=== PATIENT | female | born 1985 | race Native Hawaiian/Other Pacific Islander ===

== ENCOUNTER 2019-05-19 13:19 | Outpatient (CLI) | payer OTHER ==
--- NOTE | 2019-05-19 14:52 | MRI Report ---
Reason: FASCICULATION, VARGAS'S PALSY, UNSPECIFIED SPEECH DI Procedure Date: 05/19/2019 Accession Number: [id number] / [id number] Procedure: MRI - Brain W/O CPT Code: FULL RESULT: EXAM: MRI BRAIN AND INTERNAL AUDITORY CANAL (IAC),WITHOUT CONTRAST. EXAM DATE: 05/19/2019 02:34 PM. CLINICAL HISTORY: FASCICULATION, BELLS PALSY, UNSPECIFIED SPEECH DISTURBANCE. Subjective facial weakness for the past 3 months, difficulty initiating speech, stuttering, increased muscle twitching and irritability.. COMPARISON: None. TECHNIQUE: Multiplanar, multisequence T1-weighted and fluid-sensitive MRI sequences of the brain and IACs were performed. Other: None. IV Contrast: None. Without contrast. FINDINGS: Diffusion weighted sequence shows no evidence for acute infarct. There is no mass, mass effect, midline shift or abnormal extraaxial fluid collection. Size and configuration of the ventricles are normal. Signal in the cortex and white matter appears normal. Brainstem and cerebellum appear normal. Major intracranial flow voids appear normal. T2 signal in the internal auditory canal, and membranous labyrinth appears normal. No evidence for superior semicircular canal dehiscence Globes, orbits, optic nerve sheath complex, optic chiasm, pituitary, cavernous sinus and Meckel's cave appear normal. Paranasal sinuses and mastoid air cells appear well aerated. Marrow signal and extracranial soft tissue appear normal. Craniocervical junction and visualized upper cervical cord appear unremarkable. IMPRESSION: 1. Normal MRI of the brain and IAC without contrast. 2. For the diagnosis of acute facial neuritis (Vargas's palsy), contrast-enhanced MRI is required to evaluate for abnormal enhancement of the facial nerve. RADIA
== END 2019-05-19 13:20 | disposition home or self-care (01) ==
LOC: DI 13:19
PROVIDERS: ATTEND Family Medicine
DX: G51.0 Bell's palsy (principal); R25.3 Fasciculation; R47.9 Unspecified speech disturbances
CPT/HCPCS: 70551

== ENCOUNTER 2021-06-15 04:13 | Emergency (ER) | payer OTHER ==
[2021-06-15] MEDS ORDERED: hydrOXYzine PAMOATE 25 MG CAPSULE PO STA (04:42)
--- NOTE | 2021-06-15 04:42 | ED Physician Documentation ---
PD HPI CHEST PAIN - Stated complaint Stated Complaint: CHEST PRESSURE, PANICK ATTACK - Chief complaint Chief Complaint: Cardiac - History obtained from History obtained from: Patient - History of Present Illness Timing - onset during: Other (unable to sleep all night, then sudden onset severe anxiety and chest pain just prior to arrival) Timing - details: Abrupt onset Quality: Tightness Location: Substernal Associated symptoms: Shortness of air, Other (severe anxiety/hyperventilating) Similar symptoms before: No diagnosis Review of Systems Ten Systems: 10 systems reviewed and negative Constitutional: denies: Fever, Chills Cardiac: reports: Chest pain / pressure, Palpitations Respiratory: reports: Dyspnea. denies: Cough Psychiatric: reports: Anxiety, Insomnia PD PAST MEDICAL HISTORY - Present Medications Home Medications: Ambulatory Orders Medication Instructions Recorded Confirmed hydrOXYzine HCL [Hydroxyzine HCl] 50 mg PO TID PRN #30 tablet 06/15/21 - Allergies Allergies/Adverse Reactions: Allergies Allergy/AdvReac Type Severity Reaction Status Date / Time No Known Drug Allergies Allergy Verified 06/15/21 04:26 PD ED PE NORMAL - Vitals Vital signs reviewed: Yes - General General: Alert and oriented X 3, No acute distress, Well developed/nourished - HEENT HEENT: Atraumatic, PERRL, EOMI - Neck Neck: Supple, no meningeal sign - Cardiac Cardiac: RRR - Respiratory Respiratory: No respiratory distress, Clear bilaterally - Abdomen Abdomen: Non tender, Non distended - Derm Derm: Normal color - Extremities Extremities: No deformity - Neuro Neuro: Alert and oriented X 3 - Psych Psych: Normal mood, Normal affect Results - Vitals Vitals: Vital Signs - 24 hr 06/15/21 06/15/21 04:15 04:22 Temperature 36.4 C L Heart Rate 65 66 Respiratory 18 15 Rate Blood Pressure 167/94 H 141/87 H O2 Saturation 99 100 Oxygen O2 Source Room air - EKG (time done) 0420 Rate: Rate (enter#) (85) Rhythm: NSR Rock: Normal Intervals: Normal ID, QRS normal Ischemia: Other (no STEMI) PD MEDICAL DECISION MAKING - ED course ED course: 36 y F presents s/p self reported "panic attack". ekg noncontributory. patient feeling better now and requesting atarax to go home with, which has helped in the past. return precautions given. plan to f/u with pmd for outpatient mental health resources. coping mechanisms and mental health care education provided. Departure - Departure Disposition: 01 Home, Self Care Clinical Impression: Anxiety attack Condition: Good Instructions: ED Stress React Prescriptions: hydrOXYzine HCL [Hydroxyzine HCl] 50 mg PO TID PRN #30 tablet PRN Reason: anxiety Comments: You were seen in the emergency department for acute anxiety. Your EKG did not show a heart attack. Please follow up with your primary doctor this week and return to the emergency department if you have any new or worsening symptoms or other concerns.
[2021-06-15 05:04] VITALS: BP 131/85
== END 2021-06-15 05:20 | disposition home or self-care (01) ==
LOC: ED 04:13
DX: F41.0 Panic disorder [episodic paroxysmal anxiety] (principal); R07.89 Other chest pain
CPT/HCPCS: 93005; 99284; A9270

== ENCOUNTER 2022-05-30 13:51 | Emergency (ER) | payer OTHER ==
[2022-05-30 14:20] LABS: BASOPHILS # (AUTO) 0.1 10^3/uL (0.0-0.1); BASOPHILS % (AUTO) 0.4 %; EOSINOPHILS # (AUTO) 0.4 10^3/uL (0.0-0.7); EOSINOPHILS % (AUTO) 2.3 %; HCT - HEMATOCRIT 38.2 % (37.0-47.0); HGB - HEMOGLOBIN 13.6 g/dL (12.0-16.0); LYMPHOCYTES % (AUTO) 19.6 %; MEAN CORPUSCULAR HEMOGLOBIN 30.7 pg (27.0-31.0); MEAN CORPUSCULAR HGB CONC 35.6 g/dL (32.0-36.0); MEAN CORPUSCULAR VOLUME 86.2 fL (81.0-99.0); MEAN PLATELET VOLUME 9.5 fL (7.9-10.8); MONOCYTES # (AUTO) 0.6 10^3/uL (0.0-1.0); NEUTROPHILS # (AUTO) 11.1 10^3/uL (1.5-6.6); NEUTROPHILS % (AUTO) 73.4 %; PLT - PLATELET COUNT 346 10^3/uL (130-450); RED BLOOD COUNT 4.43 10^6/uL (4.20-5.40); RED CELL DISTRIBUTION WIDTH 12.2 % (12.0-15.0); WHITE BLOOD COUNT 15.1 x10^3/uL (4.8-10.8)
[2022-05-30 14:35] LABS: BILIRUBIN,TOTAL 0.6 mg/dL (0.2-1.0); CREATININE 0.7 mg/dL (0.4-1.0); POTASSIUM 3.4 mmol/L (3.5-5.0)
[2022-05-30 14:45] LABS: BILIRUBIN,URINE NEGATIVE (NEGATIVE); GLUCOSE, URINE (UA) 250 mg/dL (NEGATIVE); KETONES,URINE (UA) TRACE mg/dL (NEGATIVE); LEUKOCYTE ESTERASE, URINE TRACE (NEGATIVE); NITRITE,URINE NEGATIVE (NEGATIVE); OCCULT BLOOD,URINE LARGE (NEGATIVE); PROTEIN,URINE 100 mg/dL (NEGATIVE); UROBILINOGEN,URINE 0.2 (NORMAL) E.U./dL (NORMAL)
[2022-05-30 14:51] LABS: CLARITY,URINE CLOUDY (CLEAR)
[2022-05-30 15:05] LABS: AMORPHOUS SEDIMENT,UR Few /LPF; BACTERIA,URINE Few /HPF (None Seen); RBC,URINE TNTC /HPF (0-5); SQUAMOUS EPITHELIAL CELL,UR FEW Squamous (<= Few); WBC,URINE 0-3 /HPF (0-5)
[2022-05-30] MEDS ORDERED: cephALEXin 250 MG CAPSULE PO STA (15:23)
--- NOTE | 2022-05-30 15:23 | ED Physician Documentation ---
History of Present Illness - Stated complaint Stated Complaint: FEMALE - Chief complaint Chief Complaint: Abd Pain - History obtained from History obtained from: Patient - History of Present Illness Timing: Today Pain level max: 4 Pain level now: 1 - Additonal information Additional information: Patient is a 37-year-old female who presents to the emergency department with dysuria, urinary frequency and hematuria. Concern for potential bladder infection. She does not have any pelvic pain contrary to triage note. Patient states she did have implantation of her frozen embryo into her uterus about 1 week ago. No vaginal bleeding or discharge. No abdominal pain. No back pain. No fevers. No chills. No vomiting. Feels similar to prior UTIs. Review of Systems Constitutional: denies: Fever, Chills GI: denies: Vomiting Skin: denies: Rash Musculoskeletal: denies: Neck pain, Back pain PD PAST MEDICAL HISTORY - Past Medical History Past Medical History: Yes Cardiovascular: Hypertension - Past Surgical History Past Surgical History: Yes /RESPITE CARE PROVIDER: section, Hysterectomy, Other - Present Medications Home Medications: Ambulatory Orders Medication Instructions Recorded Confirmed hydrOXYzine HCL [Hydroxyzine HCl] 50 mg PO TID PRN #30 tablet 06/15/21 cephALEXin [Keflex] 500 mg PO Q6H #20 cap 05/30/22 - Allergies Allergies/Adverse Reactions: Allergies Allergy/AdvReac Type Severity Reaction Status Date / Time No Known Drug Allergies Allergy Verified 05/30/22 14:00 - Social History Does the pt smoke?: No Smoking Status: Never smoker Does the pt drink ETOH?: No Does the pt have substance abuse?: No - Immunizations Immunizations are current?: Yes PD ED PE NORMAL - Vitals Vital signs reviewed: Yes - General General: Alert and oriented X 3, No acute distress - HEENT HEENT: Moist mucous membranes - Neck Neck: Supple, no meningeal sign - Cardiac Cardiac: RRR - Respiratory Respiratory: No respiratory distress, Clear bilaterally - Abdomen Abdomen: Soft, Non tender, Non distended - Back Back: No CVA TTP - Derm Derm: Warm and dry - Neuro Neuro: Alert and oriented X 3 Results - Vitals Vitals: Vital Signs - 24 hr 05/30/22 05/30/22 05/30/22 13:55 13:59 15:30 Temperature 36.0 C L 36.5 C 36.5 C Heart Rate 88 88 86 Respiratory 16 16 16 Rate Blood Pressure 142/89 H 142/89 H 130/80 O2 Saturation 99 99 98 Oxygen O2 Source Room air - Labs Labs: Laboratory Tests 05/30/22 05/30/22 05/30/22 14:15 14:15 14:15 WBC 15.1 H RBC 4.43 Hgb 13.6 Hct 38.2 MCV 86.2 MCH 30.7 MCHC 35.6 RDW 12.2 Plt Count 346 MPV 9.5 Neut # (Auto) 11.1 H Lymph # (Auto) 3.0 [place] # (Auto) 0.6 Eos # (Auto) 0.4 Baso # (Auto) 0.1 Absolute Nucleated RBC 0.00 Nucleated RBC % 0.0 Sodium 136 Potassium 3.4 L Chloride 103 Carbon Dioxide 23 Anion Gap 10.0 BUN 8 Creatinine 0.7 Estimated GFR (MDRD) 93 Glucose 131 H Calcium 9.0 Total Bilirubin 0.6 AST 24 ALT 24 Alkaline Phosphatase 47 Total Protein 8.0 Albumin 4.0 Globulin 4.0 Albumin/Globulin Ratio 1.0 Lipase 64 H HCG, Quant < 0.60 Urine Color Urine Clarity Urine pH Ur Specific [place] Urine Protein Urine Glucose (UA) Urine Ketones Urine Occult Blood Urine Nitrite Urine Bilirubin Urine Urobilinogen Ur Leukocyte Esterase Urine RBC Urine WBC Ur Squamous Epith Cells Amorphous Sediment Urine Bacteria Ur Microscopic Review Urine Culture Comments 05/30/22 14:30 WBC RBC Hgb Hct MCV MCH MCHC RDW Plt Count MPV Neut # (Auto) Lymph # (Auto) [place] # (Auto) Eos # (Auto) Baso # (Auto) Absolute Nucleated RBC Nucleated RBC % Sodium Potassium Chloride Carbon Dioxide Anion Gap BUN Creatinine Estimated GFR (MDRD) Glucose Calcium Total Bilirubin AST ALT Alkaline Phosphatase Total Protein Albumin Globulin Albumin/Globulin Ratio Lipase HCG, Quant Urine Color YELLOW Urine Clarity CLOUDY Urine pH 6.0 Ur Specific [place] >=1.030 H Urine Protein 100 H Urine Glucose (UA) 250 H Urine Ketones TRACE Urine Occult Blood LARGE H Urine Nitrite NEGATIVE Urine Bilirubin NEGATIVE Urine Urobilinogen 0.2 (NORMAL) Ur Leukocyte Esterase TRACE H Urine RBC TNTC H Urine WBC 0-3 Ur Squamous Epith Cells FEW Squamous Amorphous Sediment Few Urine Bacteria Few Ur Microscopic Review INDICATED Urine Culture Comments INDICATED PD MEDICAL DECISION MAKING - ED course Complexity details: reviewed results, considered differential, d/w patient ED course: Patient with a UTI. Will place on antibiotics. Patient is well-appearing, nontoxic. Afebrile. No evidence of pyelonephritis, sepsis. Her hCG is less than 0.6. I will have her follow-up with her IVF specialist regarding the implanted frozen embryo. Abdomen is soft, nontender nondistended. No pelvic pain. Patient counseled regarding signs and symptoms for which I believe and urgent re-evaluation would be necessary. Patient with good understanding of and agreement to plan and is comfortable going home at this time This document was made in part using voice recognition software. While efforts are made to proofread this document, sound alike and grammatical errors may occur. Departure - Departure Disposition: Home, Self Care Clinical Impression: UTI (urinary tract infection) Qualifiers: Urinary tract infection type: acute cystitis Hematuria presence: without hematuria Qualified Code(s): N30.00 - Acute cystitis without hematuria Condition: Good Instructions: ED UTI Cystitis Female Follow-Up: your,doctor in 1 week [Other] Prescriptions: cephALEXin [Keflex] 500 mg PO Q6H #20 cap Comments: Please follow-up with your doctor for further care. Please return if you worsen. Your prescriptions were sent to [facility] in [place]. Take all antibiotics until gone. Your hCG level is still negative today. Please follow- up with your IVF specialist. Discharge Date/Time: 05/30/22 15:30
[2022-05-30 15:32] VITALS: BP 130/80
== END 2022-05-30 15:30 | disposition home or self-care (01) ==
LOC: ED 13:51
DX: N30.00 Acute cystitis without hematuria (principal)
CPT/HCPCS: 36415; 80053; 81001; 83690; 84702; 85025; 87086; 99282; 99283; A9270; 81003; 87077; 87181